=== PATIENT | male | born 1960 | race Caucasian/White ===

== ENCOUNTER → 2024-01-30 08:11 | Outpatient (REF) | payer OTHER, SELFPAY ==
--- NOTE | 2024-01-30 | DI.US_ITS ---
Exam(s) US LOWER EXTREMITY VENOUS RT EXAM: US LOWER EXTREMITY VENOUS RT CLINICAL HISTORY: Pain in rt knee, M25.561. TECHNIQUE: Lower extremity venous ultrasound performed using grayscale, color-flow, and spectral Do ppler analysis. COMPARISON: No exams were available for comparison FINDINGS: The common femoral, femoral and popliteal veins demonstrate normal compressibility, augmentation, and color Doppler. The posterior tibial veins are patent. No saphenous vein thrombosis or other superfi cial venous thrombosis is seen. No hematoma or Marsh's cyst is seen. IMPRESSION: Negative lower extremity ultrasound. No evidence of DVT. DATA REPOSITORY:
--- NOTE | 2024-01-30 10:58 | DI.RAD_ITS ---
Exam(s) XR KNEE RT 3V AP,LAT,MELONY EXAM: XR KNEE RT 3V AP,LAT,MELONY CLINICAL HISTORY: Pain in rt knee, M25.561. TECHNIQUE: 2D digital imaging was performed. Three views. COMPARISON: No exams were available for comparison FINDINGS: BONES: No acute fracture is present. No bony destructive lesion is seen. JOINTS: The knee is normally aligned. No joint effusion is seen. The joint spaces are maintained. Mild spurring at the articular aspect of patella. SOFT TISSUE: Minimal calcification in distal quadriceps tendon. IMPRESSION: Mild degenerative changes. DATA REPOSITORY: RADIATION DOSE DELIVERED:
== END ==
LOC: DI 08:11
PROVIDERS: Visit Provider Physician Assistant Medical
DX: M25.561 Pain in right knee (principal)
CPT/HCPCS: 73562; 93971

== ENCOUNTER 2024-02-12 21:55 | Outpatient (REF) | payer OTHER, SELFPAY ==
[2024-02-12 21:57] LABS: BUN 29 mg/dL (7-18); CREATININE 1.2 mg/dL (0.70-1.30); Calcium 9.1 mg/dL (8.5-10.1); Chloride 107 mmol/L (98-107); Estimated GFR 67.53 (mL/min/1.73m2); Glucose 104 mg/dL (74-106); Potassium 4.3 mmol/L (3.5-5.1); Sodium 144 mmol/L (136-145)
== END 2024-02-12 21:56 | disposition home or self-care (01) ==
LOC: NCHCN 21:55
PROVIDERS: Referring Provider Family Medicine; Visit Provider Family Medicine
DX: I10 Essential (primary) hypertension (principal)
CPT/HCPCS: 80048

== ENCOUNTER 2025-02-15 20:17 | Outpatient (REF) | payer MEDICARE, OTHER, SELFPAY ==
[2025-02-15 22:31] LABS: Anion Gap 9.3 mmol/L (3-11); BUN 15 mg/dL (7-18); CO2 26.7 mmol/L (21.0-32.0); Calcium 10.1 mg/dL (8.5-10.1); Chloride 106 mmol/L (98-107); Estimated GFR 94.78 (mL/min/1.73m2); Glucose 93 mg/dL (74-106); LDL CHOLESTEROL 124 mg/dL (<100); Potassium 4.5 mmol/L (3.5-5.1); Sodium 142 mmol/L (136-145)
== END 2025-02-15 20:18 | disposition home or self-care (01) ==
LOC: NCHCN 20:17
PROVIDERS: Visit Provider Family Medicine
DX: I10 Essential (primary) hypertension (principal)
CPT/HCPCS: 80048; 83721

== ENCOUNTER 2025-02-21 01:17 | Outpatient (CLI) | payer MEDICARE, OTHER, SELFPAY ==
--- NOTE | 2025-02-21 | DI.US_ITS ---
Exam(s) US AAA SCREENING EXAM: US AAA SCREENING CLINICAL HISTORY: PERS HX NICOTINE DEPENDENCE [id number] COMPARISON: No exams were available for comparison FINDINGS: Abdominal Aorta: Proximal: 2.2 x 2.2 cm Mid: 2.0 x 1.9 cm Distal: 1.8 x 2.0 cm Iliac's: Right: 1.2 x 1.3 cm Left: 1.3 x 1.1 cm No significant atherosclerotic disease is seen. IMPRESSION: No evidence of abdominal aortic aneurysm. DATA REPOSITORY:
== END 2025-02-21 01:37 ==
PROVIDERS: Visit Provider Family Medicine
DX: Z13.6 Encounter for screening for cardiovascular disorders (principal); Z87.891 Personal history of nicotine dependence
CPT/HCPCS: 76706

== ENCOUNTER 2025-03-09 02:06 | Outpatient (CLI) | payer MEDICARE, OTHER, SELFPAY ==
--- NOTE | 2025-03-09 08:30 | DI.US_ITS ---
APPROVED REPORT EXAM: Comprehensive 2D, Doppler, and color-flow Echocardiogram Patient Location: Out-Patient Senior Construction Project Manager: Michelle Weaver RDCS (AE) Indications: Ascending aorta dilation, Thoracic aortic ectasia . AVR Other Information Study Quality: Adequate Conclusion Concentric left ventricular hypertrophy. Ejection fraction is 55 to 60%. There are no segmental wall motion abnormalities Normal right ventricular size and function Both atria are moderately enlarged There is a bioprosthetic aortic valve. There is severe stenosis by gradients with a peak of 63, mean 39 mmHg. Calculated aortic valve area is 1.1 cm?? which would be moderate stenosis. No aortic regurgitation Mild tricuspid regurgitation. Estimated right ventricular systolic pressure is 30 mmHg Ascending aorta measures 4.05 cm Wall motion Left Ventricle The left ventricle is normal size. The left ventricular systolic function is normal. The left ventricular ejection fraction is within the normal range. Concentric left ventricular hypertrophy. There is normal LV segmental wall motion. There is no ventricular septal defect visualized. LVEF is 57%. Right Ventricle The right ventricle is normal size. The right ventricular systolic function is normal. Atria Left atrium is moderately dilated. Right atrium is moderately dilated. The interatrial septum is intact with no evidence for an atrial septal defect. Aortic Valve Aortic valve is calcified. Highest mean aortic valve gradient is 39.45_mmHg. Peak aortic valve gradient is 63.41mmHg. No aortic regurgitation is present. Bioprosthetic aortic valve is present, Bovine Mitral Valve The mitral valve is normal in structure. No evidence of mitral valve stenosis. Trace mitral regurgitation. Tricuspid Valve The tricuspid valve is normal in structure. There is no tricuspid valve stenosis. Mild tricuspid regurgitation. The RVSP is 30.2 mmHg. Pulmonic Valve The pulmonary valve is normal in structure. There is no pulmonic valvular stenosis. Trace pulmonic regurgitation. Great Vessels The aortic root is normal in size. The ascending aorta is moderate to Aortic arch is normal in caliber. severely dilated. IVC is normal in size and collapses >50% with inspiration. Pericardium There is no pericardial effusion. 2D Dimensions IVSD d PLAX 1.50 cm M: 0.6-1.2 Ao Root d 3.00 cm M: 3.1 - 3.7 LVPW d PLAX 1.50 cm M: 0.6 - 1.2 Ao Asc Diam d 4.05 cm M: 2.6 - 3.4 LVID d PLAX 4.85 cm M: 4.2 - 5.8 LVDs 3.32 cm M: 2.5 - 4.0 LV EF Teichholz 59.2 % FS 31.48 % LV EDV (Teich) 109.9 mL LV ESV (Teich) 44.8 mL M-Mode TAPSE 1.52 cm (M/F) >1.7 Auto EF LV EDV A4C 145.6 mL LV EDV A2C 170.2 mL LV EDV BP 159.7 mL LV ESV A4C 61.7 mL LV ESV A2C 75.5 mL LV ESV BP 69.4 mL LVEF(%) A4C 57.7 % LVEF(%) A2C 55.6 % LVEF(%) BP 56.6 % LV SV A4C 84.0 ml LV SV A2C 94.7 ml LV SV BP 90.4 ml LV CO A4C 4.3 L/min LV CO A2C 4.7 L/min LV CO BP 4.5 L/min HR A4C 50.99 BPM HR A2C 49.32 BPM LV EDV Index (BP) LA Volume LA Length A4C 5.9 cm LA Length A2C 5.7 cm LA Area A4C s 23.10 cm2 LA Area A2C s 25.44 cm2 LA Vol A4C A-L 77.19 mL LA Vol A2C A-L 95.88 mL LA Vol Biplane A-L 87.0 mL LA Vol/BSA A4C A-L LA Vol/BSA A2C A-L LA Vol/BSA BP A-L 46.0 mL/m2 LA Vol A4C MOD 71.7 mL LA Vol A2C MOD 89.5 mL LA Vol BP MOD 80.5 mL RA Volume RA Area A4C 21.1 cm2 RA ESV A4C (A-L) 76.8mL RA Vol/BSA A4C A-L RA Length A4C 4.9 cm RA ESV A4C (MOD) 69.9mL LV Diastology MV E' medial 0.067 (>0.07 m/s) MV E Vmax 0.97 (0.4-1.3 m/s) MV E/E' MED 14.51 (<14) MV A Vmax 0.80 (0.4-1.3 m/s) MV E' lateral 0.067 (>0.1 m/s) E/A Ratio 1.2 MV E/E' LAT 14.51 (<14) MV E' Average 0.067 m/s MV E/E'(average) 14.51 Aortic Valve AoV Vmax 3.98 m/s LVOT Vmax 1.43 m/s AoV Peak Grad 63.4 mmHg LVOT Peak Grad 8.1 mmHg AoV Area (Vmax) 1.23 cm2 LVOT VTI 0.315 m AoV VTI 0.917 m LVOT Mean Grad 4.3 mmHg AoV Mean Chan. 2.99 m/s LVOT SV 108.52 mL AoV Mean Grad 39.4 mmHg LVOT Diam s 2.05 cm AoV Area (VTI) 1.18 cm2 AV Regurg Peak Gr. 63.41 mmHg Velocity Ratio 0.36 Mitral Valve MV DT 282 (160-240 msec) MV Vmax TIPS 0.85 m/s MV Mean Grad 1.1 (<2mmHg) MV VTI 0.378 m Pulmonary Valve PV Vmax 1.11 (0.5-1.5 m/s) RVOT Vmax 0.83 m/s PV Peak Grad 5.0 mmHg RVOT Peak Gr. 2.8 mmHg PV Mean Chan 0.71 m/s RVOT VTI 0.185 m PV Mean Grad 2.4 mmHg RVOT Mean Gr. 1.6 mmHg Tricuspid Valve RA Pressure 3.00 mmHg TR Vmax 2.61 m/s TV S' 0.11 m/s TR Peak Grad 27.2 mmHg RVSP (TR) 30.2 mmHg
== END 2025-03-09 02:26 ==
PROVIDERS: PCP Family Medicine; Visit Provider Family Medicine
DX: I77.810 Thoracic aortic ectasia (principal)
CPT/HCPCS: 93306

== ENCOUNTER → 2025-05-20 13:47 | Outpatient (CLI) | payer MEDICARE, OTHER, SELFPAY ==
--- NOTE | 2025-05-20 | DI.RAD_ITS ---
Exam(s) XR CERVICAL SPINE COMP 4-5V EXAM: XR CERVICAL SPINE COMP 4-5V CLINICAL HISTORY: cervicalgia,M54.2. TECHNIQUE: 2D digital imaging was performed. COMPARISON: No exams were available for comparison FINDINGS: Five views No evidence of acute fracture, listhesis, nor offset of the spinal laminar line. There is moderate chronic type disc space narrowing at C5-6 and C6-7 levels and there are bilateral Luschka joint osteophytes at C6-7 and unilateral left Luschka joint osteophyte at C5-6. There is also multilevel facet arthropathy. There are no cervical ribs. No osseous lesions. Bone density normal. Some calcification is incidentally noted in the supraspinous ligament. In addition, there is a deformity of the spinous process of C7 which has appearance of a nonacute shawn-grounds/maintenance specialist's fracture IMPRESSION: Shanw-grounds/maintenance specialist's fracture of the spinous process of C7 which probably not acute given the appearance Chronic disc space narrowing at C5-6 and C6-7 levels. DATA REPOSITORY: RADIATION DOSE DELIVERED:
== END ==
LOC: DI 13:50
PROVIDERS: PCP Family Medicine; Visit Provider Physician Assistant Medical
DX: M50.022 Cervical disc disorder at C5-C6 level with myelopathy (principal); M50.023 Cervical disc disorder at C6-C7 level with myelopathy
CPT/HCPCS: 72050